=== PATIENT | male | born 1965 | race Caucasian/White ===

== ENCOUNTER 2017-10-18 11:12 | Emergency (ER) | payer OTHER ==
[~2017-10-18] VITALS: Ht 175.3 cm; Wt 108.9 kg
--- NOTE | 2017-10-18 11:51 | NUR ---
PT IS IN ROOM #1B. DR DUBOIS EVALAUTED THE PT.
[2017-10-18] MEDS ORDERED: HYDR25TA4 PO (12:05)
[2017-10-18] MEDS ORDERED: TEST5GEL2 TP (12:05)
[2017-10-18] MEDS ORDERED: METF750T2 PO (12:05)
[2017-10-18] MEDS ORDERED: ASPI-605 PO (12:05)
[2017-10-18] MEDS ORDERED: LISI10TA5 PO (12:05)
[2017-10-18] MEDS ORDERED: ATEN50TA PO (12:05)
[2017-10-18] MEDS ORDERED: OMEP20TA5 PO (12:05)
[2017-10-18] MEDS ORDERED: DULA1.5P SQ (12:05)
[2017-10-18] MEDS ORDERED: RIVA10TA PO (12:05)
[2017-10-18] MEDS ORDERED: ROSU40TA PO (12:05)
[2017-10-18] MEDS ORDERED: EMPA10TA PO (12:05)
[2017-10-18] MEDS ORDERED: FENO54TA PO (12:05)
[2017-10-18] MEDS ORDERED: MULT1TAB73 PO (12:06)
[2017-10-18] MEDS ORDERED: VITA400C24 PO (12:06)
[2017-10-18] MEDS ORDERED: CHOL10005 PO (12:06)
[2017-10-18 12:43] LABS: BASOPHILS # (AUTO) 0.1 K/uL (0.0-8.0); BASOPHILS % (AUTO) 0.6 % (0.0-2.0); EOSINOPHILS # (AUTO) 0.1 K/uL (0.0-0.7); EOSINOPHILS % (AUTO) 0.9 % (0.0-7.0); HEMATOCRIT 40.2 % (36.7-47.1); HEMOGLOBIN 13.9 g/dL (12.5-16.3); LYMPHOCYTES # (AUTO) 2.5 K/uL (20.0-40.0); LYMPHOCYTES % (AUTO) 23.5 % (20.5-51.5); MEAN CORPUSCULAR HEMOGLOBIN 30.5 uug (23.8-33.4); MEAN CORPUSCULAR HGB CONC 35 g/dL (32.5-36.3); MEAN CORPUSCULAR VOLUME 88.5 fL (73.0-96.2); MONOCYTES # (AUTO) 0.7 K/uL (2.0-10.0); NEUTROPHILS # (AUTO) 7.1 K/uL (1.8-8.9); PLATELET COUNT (AUTO) 272 K/uL (152-348); RED BLOOD CELL COUNT(AUTO) 4.55 MIL/uL (4.06-5.63); WHITE BLOOD COUNT (AUTO) 10.5 K/uL (3.6-10.2)
[2017-10-18 12:49] LABS: CREATININE 1.2 mg/dL (0.6-1.3); POTASSIUM 3.9 mmol/L (3.5-5.1)
--- NOTE | 2017-10-18 13:33 | NUR ---
PT WAS D/C TO HOME. D/C INSTRUCTIONS GIVEN TO THE PT.
[2017-10-18 13:36] VITALS: BP 136/82
== END 2017-10-18 13:38 | disposition home or self-care (01) ==
LOC: ER 11:12
DX: S60.222A Contusion of left hand, initial encounter (principal); R07.9 Chest pain, unspecified; I10 Essential (primary) hypertension; E11.9 Type 2 diabetes mellitus without complications; E78.5 Hyperlipidemia, unspecified; Z79.01 Long term (current) use of anticoagulants; Z79.82 Long term (current) use of aspirin; Z86.718 Personal history of other venous thrombosis and embolism; V43.52XA Car driver injured in collision with other type car in traffic accident, initial encounter; Y93.89 Activity, other specified; Y92.410 Unspecified street and highway as the place of occurrence of the external cause; Y99.8 Other external cause status
CPT/HCPCS: 36415; 70030-TC; 71045; 73130; 85025; 85730; 93005; A4663